=== PATIENT | male | born 1980 | race Caucasian/White ===

== ENCOUNTER 2016-11-22 20:14 | Emergency (ER) | payer OTHER ==
[~2016-11-22] VITALS: Ht 177.8 cm; Wt 88.5 kg
[~2016-11-22 20:14] MED LIST: 'PARAFON FORTE500 M1 PO; ALBUTEROL0.09 MG/A1 INH; ALBUTEROL0.09 MG/A2 IH; ALBUTEROL0.09 MG/A2 INH; AMOXICILLIN500 M2 PO; AMOXICILLIN500 MG PO; ANAPROX DS550 MG PO; ATARAX25 MG PO; AUGMENTIN 875 M1 TAB PO; AUGMENTIN 875875 MG PO; BACTRIM DS 8001 TA1 PO; CLARITIN10 MG PO; CLEOCIN HCL300 MG PO; CORTISPORIN 1%-10 M1 OT; CYCLOBENZAPRINE10 MG PO; CYCLOBENZAPRINE5 M3 PO; FLEXERIL10 MG PO; FLEXERIL5 MG PO; HYDROCODONE BIT1 T11 PO; MEDROL DOSEPAK4 MG PO; MOTRIN600 MG PO; MOTRIN800 MG PO; Motrin,Rufen800 MG PO; NAPROSYN500 MG PO; NASONEX0.05 MG/AC NAS; NORCO 325 MG-51 TAB PO; PEN-VEE K500 MG PO; PHENERGAN25 M1 PO; PREDNICOT20 MG PO; PREDNISONE10 MG PO; PROAIR HFA0.09 MG/AC IH; PROVENTIL0.09 MG/AC IH; SEPTRA DS 800 M1 TAB PO; SINUS MEDICATION; TOBRADEX 0.1%-0.5 ML OPH; ULTRAM50 MG PO; VIBRAMYCIN100 MG PO; VICODIN 5/500 505 MG PO; ZITHROMAX Z PA250 MG PO; ZOFRAN ODT4 MG SL
[2016-11-22 20:41] VITALS: BP 140/102
[2016-11-22] MEDS ORDERED: MONTELUKAST SOD10 MG PO (20:42)
[2016-11-22] MEDS ORDERED: FLOVENT HFA12 GM INH (20:42)
[2016-11-22] MEDS ORDERED: Orphenadrine C100 MG PO (23:37)
[2016-11-22] MEDS ORDERED: NORCO 5-325 TA1 EACH PO (23:37)
[2016-11-22] MEDS ORDERED: Motrin,Rufen800 MG PO (23:37)
== END 2016-11-22 23:50 | disposition home or self-care (01) ==
LOC: ED 20:14
DX: M54.12 Radiculopathy, cervical region (principal); F17.200 Nicotine dependence, unspecified, uncomplicated; Z79.899 Other long term (current) drug therapy

== ENCOUNTER 2017-02-20 17:41 | Emergency (ER) | payer OTHER ==
[~2017-02-20 17:41] MED LIST changes: +FLOVENT HFA12 GM INH; +MONTELUKAST SOD10 MG PO; +NORCO 5-325 TA1 EACH PO; +Orphenadrine C100 MG PO
[2017-02-20 17:44] VITALS: BP 132/84
[2017-02-20] MEDS ORDERED: PENICILLIN-VK500 MG PO (18:25)
== END 2017-02-20 18:28 | disposition home or self-care (01) ==
LOC: ED 17:41
DX: K08.89 Other specified disorders of teeth and supporting structures (principal); F17.200 Nicotine dependence, unspecified, uncomplicated

== ENCOUNTER 2017-03-19 15:11 | Emergency (ER) | payer OTHER ==
[~2017-03-19] VITALS: Ht 177.8 cm; Wt 85.7 kg
[~2017-03-19 15:11] MED LIST changes: +PENICILLIN-VK500 MG PO
[2017-03-19 15:17] VITALS: BP 130/86
[2017-03-19] MEDS ORDERED: CYCLOBENZAPRINE10 MG PO (15:48)
[2017-03-19] MEDS ORDERED: MEDROL DOSEPAK4 MG PO (15:48)
== END 2017-03-19 17:04 | disposition home or self-care (01) ==
LOC: ED 15:11
DX: M54.12 Radiculopathy, cervical region (principal); Z79.899 Other long term (current) drug therapy; F17.200 Nicotine dependence, unspecified, uncomplicated

== ENCOUNTER 2017-04-02 13:25 | Emergency (ER) | payer OTHER ==
[~2017-04-02] VITALS: Ht 177.8 cm; Wt 85.7 kg
[2017-04-02 13:30] VITALS: BP 110/84
[2017-04-02] MEDS ORDERED: FLONASE ALLERG9.9 ML NS (15:05)
[2017-04-02] MEDS ORDERED: AMOXICILLIN500 M2 PO (15:05)
== END 2017-04-02 15:21 | disposition home or self-care (01) ==
LOC: ED 13:25
DX: S80.11XA Contusion of right lower leg, initial encounter (principal); J01.10 Acute frontal sinusitis, unspecified; F17.200 Nicotine dependence, unspecified, uncomplicated; Z79.899 Other long term (current) drug therapy; X58.XXXA Exposure to other specified factors, initial encounter; Y93.89 Activity, other specified; Y92.89 Other specified places as the place of occurrence of the external cause; Y99.9 Unspecified external cause status

== ENCOUNTER 2017-05-14 07:30 | Emergency (ER) | payer OTHER ==
[~2017-05-14] VITALS: Ht 177.8 cm; Wt 86.2 kg
[~2017-05-14 07:30] MED LIST changes: +FLONASE ALLERG9.9 ML NS
[2017-05-14 07:36] VITALS: BP 139/74
[2017-05-14] MEDS ORDERED: NAPROSYN500 MG PO (08:16)
[2017-05-14] MEDS ORDERED: PENICILLIN VK500 MG PO (08:16)
== END 2017-05-14 08:45 | disposition home or self-care (01) ==
LOC: ED 07:30
DX: K02.9 Dental caries, unspecified (principal); F17.210 Nicotine dependence, cigarettes, uncomplicated; Z79.899 Other long term (current) drug therapy

== ENCOUNTER 2018-08-21 14:14 | Emergency (ER) | payer OTHER ==
[~2018-08-21] VITALS: Wt 88.5 kg
[2018-08-21 14:14] VITALS: BP 128/92
[~2018-08-21 14:14] MED LIST changes: +PENICILLIN VK500 MG PO
[2018-08-21] MEDS ORDERED: ULTRAM50 MG PO (16:54)
== END 2018-08-21 16:56 | disposition home or self-care (01) ==
LOC: ED 14:14
DX: S22.43XA Multiple fractures of ribs, bilateral, initial encounter for closed fracture (principal); M54.2 Cervicalgia; M25.511 Pain in right shoulder; M25.512 Pain in left shoulder; V47.6XXA Car passenger injured in collision with fixed or stationary object in traffic accident, initial encounter; Y93.89 Activity, other specified; Y92.488 Other paved roadways as the place of occurrence of the external cause; Y99.8 Other external cause status

== ENCOUNTER 2018-08-27 11:25 | Emergency (ER) | payer OTHER ==
[~2018-08-27] VITALS: Ht 175.2 cm; Wt 88.5 kg
[2018-08-27 11:26] VITALS: BP 133/99
[2018-08-27] MEDS ORDERED: NAPROSYN500 MG PO (13:43)
== END 2018-08-27 13:57 | disposition home or self-care (01) ==
LOC: ED 11:25
DX: R07.81 Pleurodynia (principal); J45.909 Unspecified asthma, uncomplicated; Z79.899 Other long term (current) drug therapy; Z79.2 Long term (current) use of antibiotics; X58.XXXA Exposure to other specified factors, initial encounter; Y93.89 Activity, other specified; Y92.89 Other specified places as the place of occurrence of the external cause; Y99.0 Civilian activity done for income or pay

== ENCOUNTER 2018-10-14 09:15 | Emergency (ER) | payer OTHER ==
[~2018-10-14] VITALS: Ht 177.8 cm; Wt 88.5 kg
[2018-10-14 09:16] VITALS: BP 154/86
== END 2018-10-14 10:45 | disposition home or self-care (01) ==
LOC: ED 09:15
DX: R07.89 Other chest pain (principal); R07.81 Pleurodynia; M25.512 Pain in left shoulder; J45.909 Unspecified asthma, uncomplicated; Z79.899 Other long term (current) drug therapy; Z79.2 Long term (current) use of antibiotics

== ENCOUNTER 2019-03-19 15:24 | Emergency (ER) | payer SELFPAY ==
[~2019-03-19] VITALS: Ht 177.8 cm; Wt 86.2 kg
[2019-03-19 15:25] VITALS: BP 122/89
== END 2019-03-19 16:40 | disposition home or self-care (01) ==
LOC: ED 15:24
DX: S93.401A Sprain of unspecified ligament of right ankle, initial encounter (principal); J45.909 Unspecified asthma, uncomplicated; Z79.2 Long term (current) use of antibiotics; Z79.899 Other long term (current) drug therapy; X50.1XXA Overexertion from prolonged static or awkward postures, initial encounter; Y93.89 Activity, other specified; Y92.410 Unspecified street and highway as the place of occurrence of the external cause; Y99.8 Other external cause status

== ENCOUNTER 2019-03-30 07:33 | Emergency (ER) | payer SELFPAY ==
[~2019-03-30] VITALS: Ht 177.8 cm; Wt 86.2 kg
[2019-03-30 07:33] VITALS: BP 134/96
[2019-03-30] MEDS ORDERED: NAPROSYN500 MG PO (08:04)
[2019-03-30] MEDS ORDERED: VALTREX1000 MG PO (08:04)
[2019-03-30] MEDS ORDERED: TYLENOL325 M1 PO (08:04)
[2019-03-30] MEDS ORDERED: AUGMENTIN 875875 MG PO (08:04)
== END 2019-03-30 08:53 | disposition home or self-care (01) ==
LOC: ED 07:33
DX: L03.213 Periorbital cellulitis (principal); B02.30 Zoster ocular disease, unspecified; J45.909 Unspecified asthma, uncomplicated; F17.210 Nicotine dependence, cigarettes, uncomplicated; Z79.899 Other long term (current) drug therapy; Z79.2 Long term (current) use of antibiotics

== ENCOUNTER 2020-04-23 17:17 | Emergency (ER) | payer SELFPAY ==
[~2020-04-23] VITALS: Ht 177.8 cm; Wt 95.3 kg
[~2020-04-23 17:17] MED LIST changes: +TYLENOL325 M1 PO; +VALTREX1000 MG PO
[2020-04-23 17:33] VITALS: BP 149/95
[2020-04-23] MEDS ORDERED: NAPROSYN500 MG PO (18:22)
[2020-04-23] MEDS ORDERED: AUGMENTIN 875-875 MG PO (18:22)
== END 2020-04-23 20:07 | disposition home or self-care (01) ==
LOC: ED 17:17
DX: K02.9 Dental caries, unspecified (principal)

== ENCOUNTER 2020-11-08 13:46 | Emergency (ER) | payer SELFPAY ==
[~2020-11-08] VITALS: Ht 154.9 cm; Wt 95.3 kg
[~2020-11-08 13:46] MED LIST changes: +AUGMENTIN 875-875 MG PO
[2020-11-08 14:14] VITALS: BP 117/85
== END 2020-11-08 16:32 | disposition home or self-care (01) ==
LOC: ED 13:46
DX: S93.491A Sprain of other ligament of right ankle, initial encounter (principal); S30.0XXA Contusion of lower back and pelvis, initial encounter; F17.200 Nicotine dependence, unspecified, uncomplicated; Z79.899 Other long term (current) drug therapy; W17.2XXA Fall into hole, initial encounter; Y93.89 Activity, other specified; Y92.096 Garden or yard of other non-institutional residence as the place of occurrence of the external cause; Y99.9 Unspecified external cause status

== ENCOUNTER 2021-11-03 15:35 | Emergency (ER) | payer SELFPAY ==
[~2021-11-03] VITALS: Wt 95.3 kg
[2021-11-03 18:42] VITALS: BP 130/90
[2021-11-03] MEDS ORDERED: Motrin,Rufen800 MG PO (20:27)
== END 2021-11-03 20:31 | disposition home or self-care (01) ==
LOC: ED 15:35
DX: S50.01XA Contusion of right elbow, initial encounter (principal); W22.8XXA Striking against or struck by other objects, initial encounter; Y93.89 Activity, other specified; Y92.89 Other specified places as the place of occurrence of the external cause; Y99.8 Other external cause status

== ENCOUNTER 2022-06-12 12:16 | Emergency (ER) | payer MEDICAID ==
[2022-06-12 12:46] VITALS: BP 143/98
[2022-06-12] MEDS ORDERED: AMOX-CLAV 875-1 EACH PO (13:01)
== END 2022-06-12 13:14 | disposition home or self-care (01) ==
LOC: ED 12:16
DX: K02.9 Dental caries, unspecified (principal)

== ENCOUNTER 2024-04-27 15:06 | Emergency (ER) | payer OTHER ==
[~2024-04-27] VITALS: Ht 177.8 cm; Wt 94.3 kg
[~2024-04-27 15:06] MED LIST changes: +AMOX-CLAV 875-1 EACH PO
[2024-04-27 15:13] VITALS: BP 154/94
[2024-04-27] MEDS ORDERED: PREDNISONE50 MG PO (15:19)
[2024-04-27] MEDS ORDERED: methylPREDNISolone sod succ 125 MG VIAL IM ONE (15:20)
[2024-04-27] MEDS ORDERED: Acetaminophen/Hydrocodone HP 10/325 PO ONE (15:20)
== END 2024-04-27 15:32 | disposition home or self-care (01) ==
LOC: ED 15:06
DX: M54.41 Lumbago with sciatica, right side (principal); J45.909 Unspecified asthma, uncomplicated